=== PATIENT | male | born 1995 | race African-American/Black ===

== ENCOUNTER 2018-04-08 08:47 | Emergency (ER) | payer OTHER ==
[2018-04-08] MEDS: PERCOCET 5MG/325MG TAB PO ×2 (09:07)
[2018-04-08] MEDS: DERMABOND TOPICAL SKIN ADHESIVE TOP ×2 (10:29)
== END 2018-04-08 10:56 | disposition home or self-care (01) ==
LOC: M ED 08:47
DX: S60.222A Contusion of left hand, initial encounter (principal); S61.412A Laceration without foreign body of left hand, initial encounter; W23.0XXA Caught, crushed, jammed, or pinched between moving objects, initial encounter; Y92.59 Other trade areas as the place of occurrence of the external cause; Y99.0 Civilian activity done for income or pay
CPT/HCPCS: 73110